=== PATIENT | male | born 1955 | race Native Hawaiian/Other Pacific Islander ===

== ENCOUNTER 2021-05-19 15:24 | Outpatient (CLI) | payer OTHER | END 2021-05-19 20:32 | disposition home or self-care (01) | LOC: CT 15:24 | PROVIDERS: ATTEND Internal Medicine Critical Care Medicine | DX: U09.9 Post COVID-19 condition, unspecified (principal); I26.99 Other pulmonary embolism without acute cor pulmonale; Z99.81 Dependence on supplemental oxygen | CPT/HCPCS: 36415; 82565; 84520; Q9963 ==